=== PATIENT | male | born 1965 | race Caucasian/White ===

== ENCOUNTER 2016-03-20 14:01 | Inpatient (IN) | payer OTHER ==
[2016-03-20 18:50] VITALS: BMI 34.0
--- NOTE | 2016-03-20 21:02 | HP ---
CIWA Score - CIWA Score Nausea/Vomitin-Mild Nausea/No Vomiting Muscle Tremors: 4-Moderate,w/Arms Extend Anxiety: 4-Mod. Anxious/Guarded Agitation: 4-Moderately Restless Paroxysmal Sweats: 1-Minimal Palms Moist Orientation: 1-Uncertain about Date Tacttile Disturbances: 0-None Auditory Disturbances: 0-None Visual Disturbances: 0-None Headache: 0-None Present CIWA-Ar Total Score: 15 Admission ROS BHS - HPI Chief Complaint: withdrawal sx Allergies/Adverse Reactions: Allergies Allergy/AdvReac Type Severity Reaction Status Date / Time shellfish derived Allergy Severe Swelling Verified 03/20/16 20:04 History of Present Illness: 50 years old male with long history of alcohol dependence, has cirrosis of the liver elevation of ammonia, sever gerd bipolar is admitted to detox Exam Limitations: No Limitations - Ebola screening Have you traveled outside of the country in the last 21 days: No Have you had contact with anyone from an Ebola affected area: No Have you been sick,other than usual withdrawal symptoms: No Do you have a fever: No - Review of Systems Constitutional: Chills, Changes in sleep, Weight Stable EENT: reports: No Symptoms Reported Respiratory: reports: No Symptoms reported Cardiac: reports: Palpitations GI: reports: Constipated, Nausea, Vomiting, Indigestion, Abdominal cramping : reports: No Symptoms Reported Musculoskeletal: reports: Back Pain Integumentary: reports: Erythema, Lesions Neuro: reports: Tremors Endocrine: reports: No Symptoms Reported Hematology: reports: No Symptoms Reported Psychiatric: reports: Judgement Intact, Anxious, Depressed Other Systems: Reviewed and Negative Patient History - Patient Medical History Hx Anemia: No Hx Asthma: No Hx Chronic Obstructive Pulmonary Disease (COPD): No Hx Cancer: No Hx Cardiac Disorders: No Hx Congestive Heart Failure: No Hx Hypertension: No Hx Hypercholesterolemia: No Hx Pacemaker: No HX Cerebrovascular Accident: No Hx Seizures: No Hx Dementia: No Hx Diabetes: No Hx Gastrointestinal Disorders: Yes Hx Liver Disease: Yes Hx Genitourinary Disorders: No Hx Sexually Transmitted Disorders: No Hx Renal Disease (ESRD): No Hx Thyroid Disease: No Hx Human Immunodeficiency Virus (HIV): No Hx Hepatitis C: No Hx Depression: No Hx Suicide Attempt: Yes (2013 over dose) Hx Bipolar Disorder: Yes Hx Schizophrenia: No - Patient Surgical History Past Surgical History: No Hx Neurologic Surgery: No Hx Cataract Extraction: No Hx Cardiac Surgery: No Hx Lung Surgery: No Hx Breast Surgery: No Hx Breast Biopsy: No Hx Abdominal Surgery: No Hx Appendectomy: No Hx Cholecystectomy: No Hx Genitourinary Surgery: No Hx Orthopedic Surgery: No Anesthesia Reaction: No - PPD History Previous Implant?: Yes Documented Results: Negative w/o proof Implanted On Prior R Admission?: No PPD to be Administered?: Yes - Smoking Cessation Smoking history: Never smoked Have you smoked in the past 12 months: No Aproximately how many cigarettes per day: 0 Cigars Per Day: 0 Hx Chewing Tobacco Use: No Initiated information on smoking cessation: No - Substance & Tx. History Hx Alcohol Use: Yes Hx Substance Use: No Substance Use Type: Alcohol Hx Substance Use Treatment: Yes - Substances Abused Alcohol Route: Oral Frequency: Daily Amount used: LIQUOR- 2 PINTS Age of first use: 15 Date of Last Use: 03/20/16 Family Disease History - Family Disease History Family Disease History: Diabetes: Mother, Other: Father (no contact) Admission Physical Exam S - Vital Signs Vital Signs: Vital Signs - 24 hr 03/20/16 18:45 Temperature 97.0 F L Pulse Rate 112 H Respiratory 20 Rate Blood Pressure 158/80 - Physical General Appearance: Yes: Nourished, Appropriately Dressed, Moderate Distress, Alcohol on Breath, Tremorous, Irritable, Sweating, Anxious HEENTM: Yes: Hearing grossly Normal, Normal ENT Inspection, Normocephalic, Normal Voice Respiratory: Yes: Chest Non-Tender, Lungs Clear, Normal Breath Sounds, No Respiratory Distress, No Accessory Muscle Use Neck: Yes: Supple, Trachea in good position Breast: Yes: Breasts Symetrical Cardiology: Yes: Regular Rhythm, Regular Rate, S1, S2 Abdominal: Yes: Non Tender, Soft Genitourinary: Yes: Within Normal Limits Back: Yes: Normal Inspection Musculoskeletal: Yes: full range of Motion, Gait Steady, Joint swelling (both ankles) Extremities: Yes: Normal Range of Motion, Non-Tender, Tremors, Swelling (both ankles) Neurological: Yes: Alert, Motor Strength 5/5, Normal Response, Depressed Affect Integumentary: Yes: Warm, Moist Lymphatic: Yes: Within Normal Limits - Diagnostic (1) Alcohol dependence with uncomplicated withdrawal Current Visit: Yes Status: Acute (2) Cirrhosis of liver Current Visit: Yes Status: Chronic Qualifiers: Hepatic cirrhosis type: alcoholic cirrhosis (3) Ammonia dermatitis Current Visit: Yes Status: Acute Comment: lactulose (4) GERD (gastroesophageal reflux disease) Current Visit: Yes Status: Acute Qualifiers: Esophagitis presence: with esophagitis Qualified Code(s): K21.0 - Gastro-esophageal reflux disease with esophagitis Comment: zantac (5) Bipolar II disorder Current Visit: Yes Status: Acute (6) Lumbar paraspinal muscle spasm Current Visit: Yes Status: Acute Comment: flexeril Cleared for Admission S - Detox or Rehab [facility] Level of Care: Medically Managed Detox Regimen/Protocol: Librium Urine Drug Screen - Results Urine Drug Screen Results: TCA-Tricyclic Antidepress
[2016-03-20] MEDS ORDERED: MAG HYDROX/AL HYDROX/SIMETH 30 ML UNIT-DOSE CUP PO PRN (21:13)
[2016-03-20] MEDS ORDERED: LOPERAMIDE HCL 2 MG CAPSULE PO PRN (21:13)
[2016-03-20] MEDS ORDERED: chlordiazePOXIDE HCL 25 MG CAPSULE PO ONE (21:13)
[2016-03-20] MEDS ORDERED: MENTHOL/PHENOL 1 EACH UD MM PRN (21:13)
[2016-03-20] MEDS ORDERED: guaiFENesin/D-METHORPHAN HB 10 ML UNIT-DOSE CUPS PO PRN (21:13)
[2016-03-20] MEDS ORDERED: chlordiazePOXIDE HCL 25 MG CAPSULE PO PRN (21:13)
[2016-03-20] MEDS ORDERED: MAGNESIUM CITRATE 300 ML BOTTLE PO PRN (21:13)
[2016-03-20] MEDS ORDERED: P-EPHED 60MG/TRIPROLIDI 2.5MG TABLET PO PRN (21:13)
[2016-03-20] MEDS ORDERED: IBUPROFEN 400 MG TABLET (FP) PO PRN (21:13)
[2016-03-20] MEDS ORDERED: hydrOXYzine PAMOATE 50 MG CAPSULE (FP) PO PRN (21:13)
[2016-03-20] MEDS ORDERED: MAGNESIUM HYDROX 2400MG/30ML ORAL SUSPENSION 30 ML CUP PO PRN (21:13)
[2016-03-20] MEDS ORDERED: ACETAMINOPHEN 325 MG TABLET (FP) PO PRN (21:13)
[2016-03-20] MEDS ORDERED: cloNIDine HCL 0.1 MG TABLET PO PRN (21:17)
[2016-03-20] MEDS ORDERED: COLLOIDAL OATMEAL 1 BAR EACH TP PRN (21:19)
[2016-03-20] MEDS: RANITIDINE HCL 150 MG TABLET (FP) PO SCH (23:55)
[2016-03-20] MEDS: CYCLOBENZAPRINE HCL 10 MG TABLET (FP) PO SCH (23:55)
[2016-03-21] MEDS: THIAMINE HCL 100 MG TABLET (FP) PO SCH ×2 (00:02→22:17)
[2016-03-21] MEDS: MINERAL OIL/PETROLAT/WATER TOPICAL CREAM 113 GM JAR TP SCH ×2 (00:04→22:55)
[2016-03-21] MEDS: chlordiazePOXIDE HCL 25 MG CAPSULE PO SCH ×5 (00:04→22:16)
[2016-03-21] MEDS: LACTULOSE 20 GM/30 ML UDC (FOR ORAL USE ONLY) PO SCH ×4 (00:06→22:16)
[2016-03-21] MEDS: CYCLOBENZAPRINE HCL 10 MG TABLET (FP) PO SCH (05:12)
[2016-03-21 09:46] LABS: MCH 34.1 pg (25.7-33.7); MCHC 35.3 g/dl (32.0-35.9); MEAN CELL VOLUME 96.8 fl (80-96); MEAN PLT VOLUME 8.3 fl (7.5-11.1); PLATELET COUNT 106 K/MM3 (134-434); RDW 14.3 % (11.9-15.9); WHITE BLOOD COUNT 5.5 K/mm3 (4.0-10.0)
[2016-03-21] MEDS: PRENATAL VITAMINS W/ FOLIC ACID TABLET (FP) PO SCH (10:13)
[2016-03-21] MEDS: RANITIDINE HCL 150 MG TABLET (FP) PO SCH ×2 (10:13→22:16)
[2016-03-21 10:37] LABS: ALBUMIN 4.2 g/dl (3.4-5.0); ALK PHOS 198 U/L (45-117); ANION GAP 13 (8-16); BILIRUBIN,TOTAL 2.7 mg/dL (0.2-1.0); CALCIUM 10.1 mg/dL (8.5-10.1); CO2 23 mmol/L (21-32); CREATININE 0.8 mg/dL (0.7-1.3); GLUCOSE,RANDOM 181 mg/dL (74-106); SGOT/AST 72 U/L (15-37); SGPT/ALT 40 U/L (12-78); TOT PROT 7.8 g/dl (6.4-8.2)
--- NOTE | 2016-03-21 10:58 | PN ---
BHS CIWA - CIWA Score Nausea/Vomitin Muscle Tremors: 4-Moderate,w/Arms Extend Anxiety: 4-Mod. Anxious/Guarded Agitation: 4-Moderately Restless Paroxysmal Sweats: 3 Orientation: 0-Oriented Tacttile Disturbances: 1-Very Mild Itch/Numbness Auditory Disturbances: 0-None Visual Disturbances: 0-None Headache: 1-Very Mild CIWA-Ar Total Score: 20 BHS Progress Note (SOAP) Subjective: nausea, sweats, interrupted sleep, anxiety, tremors Objective: 03/21/16 10:55 Vital Signs - 24 hr 03/20/16 03/21/16 03/21/16 18:45 00:05 00:30 Temperature 97.0 F L 98.6 F Pulse Rate 112 H 107 H Respiratory 20 20 18 Rate Blood Pressure 158/80 148/82 03/21/16 03/21/16 03/21/16 03:30 06:14 09:30 Temperature 97.9 F 97.7 F Pulse Rate 93 H 96 H Respiratory 18 18 16 Rate Blood Pressure 144/83 150/86 Laboratory Tests 03/21/16 03/21/16 03/21/16 06:00 06:00 07:00 WBC 5.5 RBC 4.68 Hgb 16.0 Hct 45.3 MCV 96.8 H MCHC 35.3 RDW 14.3 Plt Count 106 L MPV 8.3 Sodium 143 Potassium 3.7 Chloride 107 Carbon Dioxide 23 Anion Gap 13 BUN 10 Creatinine 0.8 Creat Clearance w eGFR > 60 Random Glucose 181 H Calcium 10.1 Total Bilirubin 2.7 H AST 72 H ALT 40 Alkaline Phosphatase 198 H Ammonia 146.73 H Total Protein 7.8 Albumin 4.2 elevated ammonia level Assessment: 03/21/16 10:56 withdrawal sx, encephalopathy Plan: cont detox, fluids, lactulose from hepatic encephalopathy
[2016-03-21 11:06] LABS: HIV 1 & 2 AB NEGATIVE; HIV 1 AGp24 NEGATIVE
[2016-03-21] MEDS ORDERED: CYCLOBENZAPRINE HCL 10 MG TABLET (FP) PO ONE (11:11)
[2016-03-21] MEDS: CYCLOBENZAPRINE HCL 10 MG TABLET (FP) PO PRN (13:04)
--- NOTE | 2016-03-21 18:00 | CONSULT ---
[facility] Psychiatric Consult - Data Date of interview: 03/21/16 Admission source: [facility] Identifying data: First admission to [facility] for this 50 y/o male seeking detox treatment on for alcohol dependence.Patient is single without children,domiciled,unemployed and supported on [facility] benefits. Substance Abuse History: - Smoking Cessation. Smoking history: Never smoked. Have you smoked in the past 12 months: No. Aproximately how many cigarettes per day: 0. Cigars Per Day: 0. Hx Chewing Tobacco Use: No. Initiated information on smoking cessation: No. - Substance & Tx. History. Hx Alcohol Use: Yes. Hx Substance Use: No. Substance Use Type: Alcohol. Hx Substance Use Treatment: Yes. - Substances Abused. Alcohol. Route: Oral. Frequency : Daily. Amount used: LIQUOR- 2 PINTS. Age of first use: 15. Date of Last Use : 03/20/16. Confirmed by patient. Medical History: Obesity and cirrhosis of the liver. Psychiatric History: Diagnosed with Bipolar Disorder,MDD and PTSD.History of two psychiatric hospitalizations ([facility] 3 years ago and [facility] 2 years ago).Mr Montilla gets his outpatient psychiatric services at [facility].Medications : seroquel 300 mg/hs + trazodone 150 mg/hs (verified via pharmacy claims of @ [facility]).Patient reports a history of one suicide attempt via overdose with medications (reason of his first hospitalization). Physical/Sexual Abuse/Trauma History: Patient denies. Additional Comment: Urine Drug Screen Results: TCA-Tricyclic Antidepressant.Noted. Mental Status Exam - Mental Status Exam Alert and Oriented to: Time, Place, Person Cognitive Function: Good Patient Appearance: Well Groomed Mood: Anxious, Hopeful Affect: Mood Congruent Patient Behavior: Fatigued, Talkative, Appropriate, Cooperative Speech Pattern: Clear, Appropriate Voice Loudness: Normal Thought Process: Goal Oriented Thought Disorder: Not Present Hallucinations: Denies Suicidal Ideation: Denies Homicidal Ideation: Denies Insight/Judgement: Fair Sleep: Poorly, Difficulty falling asleep Muscle strength/Tone: Normal Gait/Station: Normal Psychiatric Findings - Problem List ([place] 1, 2,3) (1) Alcohol dependence with uncomplicated withdrawal Current Visit: Yes Status: Acute (2) Bipolar II disorder Current Visit: Yes Status: Chronic (3) GERD (gastroesophageal reflux disease) Current Visit: Yes Status: Chronic Qualifiers: Esophagitis presence: with esophagitis Qualified Code(s): K21.0 - Gastro-esophageal reflux disease with esophagitis Comment: zantac (4) Cirrhosis of liver Current Visit: Yes Status: Chronic Qualifiers: Hepatic cirrhosis type: alcoholic cirrhosis - Initial Treatment Plan Initial Treatment Plan: Psychoeducation.Detoxification.Medications :seroquel 300 mg po hs + trazodone 100 mg po hs.Side effects/benefits discussed with the patient.Patient agrees with this plan.Observation.No scripts at discharge ( refills already available at home).
[2016-03-21] MEDS: QUEtiapine FUMARATE 300 MG TABLET PO SCH (22:16)
[2016-03-21] MEDS: traZODone HCL 100 MG TABLET (FP) PO SCH (22:16)
--- NOTE | 2016-03-21 23:34 | EKG ---
Test Reason : Blood Pressure : / mmHG Vent. Rate : 099 BPM Atrial Rate : 099 BPM P-R Int : 200 ms QRS Dur : 114 ms QT Int : 362 ms P-R-T Axes : 055 -29 052 degrees QTc Int : 464 ms NORMAL SINUS RHYTHM INCOMPLETE RIGHT BUNDLE BRANCH BLOCK BORDERLINE ECG NO PREVIOUS ECGS AVAILABLE Confirmed by ROME JUAN, MAGDALENO ([id number]) on 03/21/2016 11:34:18 PM Referred By: Confirmed By:MAGDALENO PETER MD
[2016-03-22] MEDS: diphenhydrAMINE HCL 50 MG CAPSULE PO PRN ×2 (00:27→23:36)
[2016-03-22] MEDS: chlordiazePOXIDE HCL 25 MG CAPSULE PO SCH ×3 (05:56→18:02)
[2016-03-22] MEDS: LACTULOSE 20 GM/30 ML UDC (FOR ORAL USE ONLY) PO SCH ×3 (06:50→22:33)
[2016-03-22] MEDS: PRENATAL VITAMINS W/ FOLIC ACID TABLET (FP) PO SCH (10:17)
[2016-03-22] MEDS: RANITIDINE HCL 150 MG TABLET (FP) PO SCH ×2 (10:17→22:30)
--- NOTE | 2016-03-22 10:31 | PN ---
S CIWA - CIWA Score Nausea/Vomitin-No Nausea/No Vomiting Muscle Tremors: 4-Moderate,w/Arms Extend Anxiety: 4-Mod. Anxious/Guarded Agitation: 4-Moderately Restless Paroxysmal Sweats: 3 Orientation: 0-Oriented Tacttile Disturbances: 0-None Auditory Disturbances: 0-None Visual Disturbances: 0-None Headache: 0-None Present CIWA-Ar Total Score: 15 BHS Progress Note (SOAP) Subjective: my muscle cramps went away. sweats irritable interrupted sleep Objective: 03/22/16 10:31 Vital Signs Temperature 97.3 F L 03/22/16 09:49 Pulse Rate 89 03/22/16 09:49 Respiratory Rate 18 03/22/16 09:49 Blood Pressure 128/75 03/22/16 09:49 O2 Sat by Pulse Oximetry (%) Laboratory Tests 03/21/16 03/21/16 03/21/16 06:00 06:00 06:00 WBC 5.5 RBC 4.68 Hgb 16.0 Hct 45.3 MCV 96.8 H MCHC 35.3 RDW 14.3 Plt Count 106 L MPV 8.3 Sodium 143 Potassium 3.7 Chloride 107 Carbon Dioxide 23 Anion Gap 13 BUN 10 Creatinine 0.8 Creat Clearance w eGFR > 60 Random Glucose 181 H Calcium 10.1 Total Bilirubin 2.7 H AST 72 H ALT 40 Alkaline Phosphatase 198 H Ammonia Total Protein 7.8 Albumin 4.2 RPR Titer Hepatitis C Antibody HIV 1&2 Antibody Screen Negative HIV P24 Antigen Negative 03/21/16 03/21/16 03/21/16 06:00 06:00 07:00 WBC RBC Hgb Hct MCV MCHC RDW Plt Count MPV Sodium Potassium Chloride Carbon Dioxide Anion Gap BUN Creatinine Creat Clearance w eGFR Random Glucose Calcium Total Bilirubin AST ALT Alkaline Phosphatase Ammonia 146.73 H Total Protein Albumin RPR Titer Nonreactive Hepatitis C Antibody <0.1 HIV 1&2 Antibody Screen HIV P24 Antigen Assessment: 03/22/16 10:33 withdrawal sx Plan: continue detox increase fluids
[2016-03-22 13:04] LABS: URINE APPEARANCE CLEAR; URINE BILIRUBIN NEGATIVE (NEGATIVE); URINE BLOOD NEGATIVE (NEGATIVE); URINE COLOR YELLOW; URINE GLUCOSE (UA) 3+ (NEGATIVE); URINE KETONE NEGATIVE (NEGATIVE); URINE LEUK ESTERASE NEGATIVE (NEGATIVE); URINE NITRITE NEGATIVE (NEGATIVE); URINE PROTEIN NEGATIVE (NEGATIVE); URINE UROBILINOGEN NEGATIVE E.U./dl (0.2-1.0)
[2016-03-22] MEDS: THIAMINE HCL 100 MG TABLET (FP) PO SCH (22:29)
[2016-03-22] MEDS: CYCLOBENZAPRINE HCL 10 MG TABLET (FP) PO PRN (22:30)
[2016-03-22] MEDS: QUEtiapine FUMARATE 300 MG TABLET PO SCH (22:30)
[2016-03-22] MEDS: chlordiazePOXIDE 5 MG CAPSULE PO SCH (22:30)
[2016-03-22] MEDS: traZODone HCL 100 MG TABLET (FP) PO SCH (22:32)
[2016-03-22] MEDS: MINERAL OIL/PETROLAT/WATER TOPICAL CREAM 113 GM JAR TP SCH (22:34)
[2016-03-23] MEDS: chlordiazePOXIDE 5 MG CAPSULE PO SCH ×3 (05:28→17:23)
[2016-03-23] MEDS: LACTULOSE 20 GM/30 ML UDC (FOR ORAL USE ONLY) PO SCH ×3 (05:30→22:22)
--- NOTE | 2016-03-23 10:13 | PN ---
BHS Progress Note (SOAP) Subjective: i am feeling much better very little sweats Objective: 03/23/16 10:12 Vital Signs Temperature 98.8 F 03/23/16 06:17 Pulse Rate 105 H 03/23/16 09:29 Respiratory Rate 18 03/23/16 09:29 Blood Pressure 134/77 03/23/16 09:29 O2 Sat by Pulse Oximetry (%) awake/alert ambulating no acute distress Assessment: 03/23/16 10:13 withdrawal sx Plan: continue detox increase fluids d/c in am
[2016-03-23] MEDS: RANITIDINE HCL 150 MG TABLET (FP) PO SCH ×2 (10:16→22:21)
[2016-03-23] MEDS: PRENATAL VITAMINS W/ FOLIC ACID TABLET (FP) PO SCH (10:16)
[2016-03-23] MEDS: MINERAL OIL/PETROLAT/WATER TOPICAL CREAM 113 GM JAR TP SCH (22:21)
[2016-03-23] MEDS: chlordiazePOXIDE HCL 10 MG CAPSULE PO SCH (22:21)
[2016-03-23] MEDS: THIAMINE HCL 100 MG TABLET (FP) PO SCH (22:21)
[2016-03-23] MEDS: QUEtiapine FUMARATE 300 MG TABLET PO SCH (22:21)
[2016-03-23] MEDS: traZODone HCL 100 MG TABLET (FP) PO SCH (22:21)
[2016-03-23] MEDS: diphenhydrAMINE HCL 50 MG CAPSULE PO PRN (22:21)
[2016-03-24] MEDS: diphenhydrAMINE HCL 50 MG CAPSULE PO PRN (02:10)
[2016-03-24] MEDS: chlordiazePOXIDE HCL 10 MG CAPSULE PO SCH (06:07)
[2016-03-24 06:21] VITALS: BP 126/73; PULSE 82; TEMP 97.7
[2016-03-24] MEDS: LACTULOSE 20 GM/30 ML UDC (FOR ORAL USE ONLY) PO SCH (07:32)
--- NOTE | 2016-03-24 08:33 | PN ---
S Progress Note (SOAP) Subjective: ALERT,NO COMPLAINT Objective: 03/24/16 08:32 Vital Signs Temperature 97.7 F 03/24/16 06:00 Pulse Rate 82 03/24/16 06:00 Respiratory Rate 20 03/24/16 06:00 Blood Pressure 126/73 03/24/16 06:00 O2 Sat by Pulse Oximetry (%) Assessment: 03/24/16 08:32 DETOX COMPLETED NO WITHDRAWAL SYMPTOM Plan: DISCHARGE TODAY,FOLLOW UP WITH AFTER CARE PROGRAM ARRANGEMENT
--- NOTE | 2016-03-24 08:39 | DS ---
[facility] Detox Discharge Summary Admission Date: 03/20/16 Discharge Date: 03/24/16 - History Present History: Alcohol Dependence Additional Comments: FOLLOW UP WITH AFTER [facility] ARR[facility] AND PMD FOR MEDICAL PROBLEM AND OWN PSYCHIATRIST Pertinent Past History: CIRRHOSIS OF LIVER GERD LOW BACK PAIN BIPOLAR 2 DISORDER - Physical Exam Results Vital Signs: Vital Signs Temperature 97.7 F 03/24/16 06:00 Pulse Rate 82 03/24/16 06:00 Respiratory Rate 20 03/24/16 06:00 Blood Pressure 126/73 03/24/16 06:00 O2 Sat by Pulse Oximetry (%) Pertinent Admission Physical Exam Findings: WITHDRAWAL SYMPTOM - Treatment Hospital Course: Detox Protocol Followed, Detoxed Safely, Responded well, Discharged Condition Good, Rehab Referral Accepted Patient has Accepted a Rehab Referral to: [facility] - Medication Discharge Medications: Ambulatory Orders Lactulose (Oral Use) [Cephulac -] 20 gm PO TID 03/20/16 Quetiapine Fumarate [Seroquel -] 200 mg PO HS 03/20/16 Trazodone HCl [Desyrel -] 100 mg PO HS 03/20/16 - AMA Did Patient Leave Against Medical Advice: No
== END 2016-03-24 09:56 | disposition home or self-care (01) | DRG 775 ==
LOC: YASAS 14:01 → Y6N 20:20
PROVIDERS: ADMIT Internal Medicine; ATTEND Internal Medicine
PROC: HZ2ZZZZ Detoxification Services for Substance Abuse Treatment (ICD-10-PCS; principal; 2016-03-24)
DX: F10.230 Alcohol dependence with withdrawal, uncomplicated (principal); F31.81 Bipolar II disorder; K21.0 Gastro-esophageal reflux disease with esophagitis; K70.30 Alcoholic cirrhosis of liver without ascites; L30.8 Other specified dermatitis; M62.830 Muscle spasm of back
CPT/HCPCS: 36415; 80053; 81003; 82140; 85027; 86593; 86803; 87389; 93005; 93010

== ENCOUNTER 2016-06-08 11:04 | Emergency (ER) | payer OTHER ==
[2016-06-08 11:19] VITALS: TEMP 98.2; BMI 34.0
--- NOTE | 2016-06-08 11:43 | PDOC ---
History of Present Illness - History of Present Illness Initial Comments: 06/08/16 12:17 The patient is a 50 year old male with a past medical hx of cirrhosis, hepatic encephalopathy, chronic alcohol abuse who presents to the ED from [place] for alcohol detox. The patient presents to the ED intoxicated. He notes he went to [facility] who sent him to the ED. The patient states he has been sober for the past 35 days. He states he fell off the wagon yesterday and has had approximately 35 drinks in the past 24 hours. The patient reports his last drink was about two hours ago. He denies any drug use. He is requesting a detox and has no complaints at this time. The patient denies any abdominal pain, nausea, vomiting PCP: Dr. Steve Wang <Kristina Cespedes - Last Filed: 06/08/16 15:09> <Jalen Becerra - Last Filed: 06/08/16 15:21> - General Chief Complaint: Substance Abuse Stated Complaint: REQUESTING DETOX Time Seen by Provider: 06/08/16 11:30 Past History <Kristina Cespedes - Last Filed: 06/08/16 15:09> - Past Medical History Anemia: No Asthma: No Cancer: No Cardiac Disorders: No CVA: No COPD: No CHF: No Dementia: No Diabetes: No GI Disorders: Yes (CIRRHOSIS) Disorders: No HTN: No Hypercholesterolemia: No Kidney Stones: No Liver Disease: Yes Suicide Attempt (Hx): Yes (2013 over dose) Seizures: No Thyroid Disease: No - Surgical History Abdominal Surgery: No Appendectomy: No Cardiac Surgery: No Cholecystectomy: No Lung Surgery: No Neurologic Surgery: No Orthopedic Surgery: No - Reproductive History Testicular Surgery: No - Psycho/Social/Smoking Cessation Hx Anxiety: Yes Suicidal Ideation: No Smoking History: Never smoked Have you smoked in the past 12 months: No Number of Cigarettes Smoked Daily: 0 Cigars Per Day: 0 Hx Alcohol Use: Yes (1 BOTTLE OF VODKA A DAY) Drug/Substance Use Hx: No Substance Use Type: Alcohol Hx Substance Use Treatment: Yes <Jalen Becerra - Last Filed: 06/08/16 15:21> - Past Medical History Allergies/Adverse Reactions: Allergies Allergy/AdvReac Type Severity Reaction Status Date / Time shellfish derived Allergy Severe Swelling Verified 06/08/16 11:14 Home Medications: Ambulatory Orders Lactulose (Oral Use) [Cephulac -] 20 gm PO TID #1 udc 03/24/16 Review of Systems - Review of Systems Able to Perform ROS?: Yes Comments:: 06/08/16 12:17 GENERAL/CONSTITUTIONAL: No fever or chills. No weakness. HEAD, EYES, EARS, NOSE AND THROAT: No change in vision. No ear pain or discharge. No sore throat. CARDIOVASCULAR: No chest pain or shortness of breath. RESPIRATORY: No cough, wheezing, or hemoptysis. GASTROINTESTINAL: No nausea, vomiting, diarrhea or constipation. GENITOURINARY: No dysuria, frequency, or change in urination. MUSCULOSKELETAL: No joint or muscle swelling or pain. No neck or back pain. SKIN: No rash NEUROLOGIC: No headache, vertigo, loss of consciousness, or change in strength/ sensation. ENDOCRINE: No increased thirst. No abnormal weight change. HEMATOLOGIC/LYMPHATIC: No anemia, easy bleeding, or history of blood clots. ALLERGIC/IMMUNOLOGIC: No hives or skin allergy. <Kristina Cespedes - Last Filed: 06/08/16 15:09> *Physical Exam - Vital Signs Last Vital Signs Temp Pulse Resp BP Pulse Ox 98.2 F 100 H 19 151/83 95 06/08/16 11:14 06/08/16 11:14 06/08/16 11:14 06/08/16 11:14 06/08/16 11:14 - Physical Exam Comments: 06/08/16 12:17 GENERAL: +Appears intoxicated. Awake, alert, and fully oriented, in no acute distress HEAD: No signs of trauma EYES: PERRLA, EOMI, sclera anicteric, conjunctiva clear ENT: Auricles normal inspection, hearing grossly normal, nares patent, oropharynx clear without exudates. Moist mucosa NECK: Normal ROM, supple, no lymphadenopathy, JVD, or masses LUNGS: Breath sounds equal, clear to auscultation bilaterally. No wheezes, and no crackles HEART: Regular rate and rhythm, normal S1 and S2, no murmurs, rubs or gallops ABDOMEN: +Distended. Soft, nontender, normoactive bowel sounds. No guarding, no rebound. No masses EXTREMITIES: Normal range of motion, no edema. No clubbing or cyanosis. No cords, erythema, or tenderness NEUROLOGICAL: Cranial nerves II through XII grossly intact. Normal speech, normal gait SKIN: Warm, Dry, normal turgor, no rashes or lesions noted. <Kristina Cespedes - Last Filed: 06/08/16 15:09> - Vital Signs Last Vital Signs Temp Pulse Resp BP Pulse Ox 98.2 F 100 H 19 151/83 95 06/08/16 11:14 06/08/16 11:14 06/08/16 11:14 06/08/16 11:14 06/08/16 11:14 <Jalen Becerra - Last Filed: 06/08/16 15:21> Heart Score/ECG Review - ECG Impressions Comment:: 06/08/16 12:[address] Becerra Sinus rhythm with 1st degree AV block Rate 77 bpm Left axis deviation RBBB <Kristina Cespedes - Last Filed: 06/08/16 15:09> ED Treatment Course - LABORATORY CBC & Chemistry Diagram: 06/08/16 12:06 06/08/16 12:06 - RADIOLOGY Radiograph Interpretation: 06/08/16 14:06 RAD/CHEST X-RAY PORTABLE* Detox, medical clearance. Single semierect portable chest x-ray. Unremarkable contour of the cardiomediastinal silhouette. No evidence of pneumonia, atelectasis, pleural effusion or pneumothorax. No bulky hilar adenopathy is seen. Intact visualized osseous structures. Impression. No evidence of active pulmonary disease. Reported By: Lazaro Rosado MD 06/08/16 1400 <Kristina Cespedes - Last Filed: 06/08/16 15:09> - LABORATORY CBC & Chemistry Diagram: 06/08/16 12:06 06/08/16 12:06 <Jalen Becerra - Last Filed: 06/08/16 15:21> Medical Decision Making - Medical Decision Making 06/08/16 15:09 The patient is a 50 year old male with a past medical hx of cirrhosis, hepatic encephalopathy, chronic alcohol abuse who presents to the ED from [place] for alcohol detox. The patient presents to the ED intoxicated. He was sent here from [place]. He has no complaints at this time. The plan is to order EKG, labs, CXR. Called [facility] who reports there are no available beds for the patient. <Kristina Cespedes - Last Filed: 06/08/16 15:09> - Medical Decision Making 06/08/16 15:17 There are no detox beds at [facility]. Patient no longer wants detox, as his mother was just rushed to the hospital and it turns out she is having a heart attact. His BAL should be around 160 and he is not tremulous or showing any signs of alcohol withdrawall. He is clinically sober and free to go. <Jalen Becerra - Last Filed: 06/08/16 15:21> *DC/Admit/Observation/Transfer - Attestations Scribe Attestion: 06/08/16 12:17 Documentation prepared by Kristina Cespedes, acting as general medical practitioner for Jalen Becerra MD/DO. <Kristina Cespedes - Last Filed: 06/08/16 15:09> - Discharge Dispostion Admit: No - Attestations Physician Attestion: 06/08/16 11:42 I, Dr. Jalen Becerra, attest that this document has been prepared under my direction and personally reviewed by me in its entirety. I further attest, that it accurately reflects all work, treatment, procedures and medical decision -making performed by me. <Jalen Becerra - Last Filed: 06/08/16 15:21> Diagnosis at time of Disposition: Alcoholic intoxication Qualifiers: Complication of substance-induced condition: uncomplicated Qualified Code(s): F10.120 - Alcohol abuse with intoxication, uncomplicated - Discharge Dispostion Disposition: HOME Condition at time of disposition: Good - Referrals Referrals: Steve Wang [Primary Care Provider] - - Patient Instructions Printed Discharge Instructions: DI for Alcohol Abuse Additional Instructions: Lazaro- Sorry to hear about your mom. Return to us if any problems at all. Best- Dr. Jalen Becerra
[2016-06-08] MEDS ORDERED: FOLIC ACID INJECTION - 1 MG, THIAMINE HCL 100 MG, MULTIVIT INJECTION ADULT 10 ML in SOD... IVPB ONE (11:45)
[2016-06-08 12:48] LABS: EOSINOPHIL 2.4 % (0-4.5); MCHC 35.6 g/dl (32.0-35.9); MEAN CELL VOLUME 95.5 fl (80-96); MEAN PLT VOLUME 7.4 fl (7.5-11.1); NEUTROPHILS 48.9 % (42.8-82.8); PLATELET COUNT 88 K/MM3 (134-434); WHITE BLOOD COUNT 3.7 K/mm3 (4.0-10.0)
[2016-06-08 13:08] LABS: INR 1.22 (0.82-1.09); PROTHROMBIN TIME (PATIENT) 13.5 SEC (9.98-11.88)
[2016-06-08 13:12] LABS: ALBUMIN 3.9 g/dl (3.4-5.0); ANION GAP 12 (8-16); BILIRUBIN,TOTAL 2.4 mg/dL (0.2-1.0); CALCIUM 8.8 mg/dL (8.5-10.1); CO2 27 mmol/L (21-32); COCKROFT - GAULT 226.79; CREATININE 0.7 mg/dL (0.7-1.3); GLUCOSE,RANDOM 107 mg/dL (74-106); SGOT/AST 78 U/L (15-37); SGPT/ALT 49 U/L (12-78); TOT PROT 7.6 g/dl (6.4-8.2)
[2016-06-08 13:15] LABS: ALK PHOS 151 U/L (45-117); TROPONIN I < 0.02 ng/ml (0.00-0.05)
[2016-06-08 15:24] VITALS: BP 137/69; PULSE 88
--- NOTE | 2016-06-08 16:21 | EKG ---
Test Reason : Blood Pressure : / mmHG Vent. Rate : 077 BPM Atrial Rate : 077 BPM P-R Int : 210 ms QRS Dur : 126 ms QT Int : 432 ms P-R-T Axes : 046 -40 074 degrees QTc Int : 488 ms SINUS RHYTHM WITH 1ST DEGREE A-V BLOCK LEFT AXIS DEVIATION RIGHT BUNDLE BRANCH BLOCK ABNORMAL ECG WHEN COMPARED WITH ECG OF 21-MAR-2016 00:02, NO SIGNIFICANT CHANGE WAS FOUND Confirmed by DIANA JUAN, ORA ([id number]) on 06/08/2016 4:21:05 PM Referred By: Confirmed By:ORA ORTIZ MD
== END 2016-06-08 15:24 | disposition home or self-care (01) ==
LOC: JER 11:04
PROC: 3E033GC Introduction of Other Therapeutic Substance into Peripheral Vein, Percutaneous Approach (ICD-10-PCS; principal; 2016-06-08)
DX: F10.120 Alcohol abuse with intoxication, uncomplicated (principal); K74.60 Unspecified cirrhosis of liver; K76.9 Liver disease, unspecified; F41.9 Anxiety disorder, unspecified
CPT/HCPCS: 36415; 71010-TC; 80053; 80307; 82140; 82550; 82553; 84484; 85025; 85610; 93005; 93010; 99282-25

== ENCOUNTER 2016-07-25 11:41 | Inpatient (IN) | payer OTHER ==
[2016-07-25 16:20] VITALS: BMI 34.0
--- NOTE | 2016-07-25 18:09 | HP ---
CIWA Score - CIWA Score Nausea/Vomitin-Mild Nausea/No Vomiting Muscle Tremors: 4-Moderate,w/Arms Extend Anxiety: 4-Mod. Anxious/Guarded Agitation: 4-Moderately Restless Paroxysmal Sweats: 1-Minimal Palms Moist Orientation: 1-Uncertain about Date Tacttile Disturbances: 0-None Auditory Disturbances: 0-None Visual Disturbances: 0-None Headache: 0-None Present CIWA-Ar Total Score: 15 Admission ROS BHS - HPI Chief Complaint: WITHDRAWAL SX Allergies/Adverse Reactions: Allergies Allergy/AdvReac Type Severity Reaction Status Date / Time shellfish derived Allergy Severe Swelling Verified 07/25/16 17:20 History of Present Illness: 50 YEARS OLD MALE WITH LONG HISTORY OF ALCOHOL DEPENDENCE HAS GERD AND AMMONIA ELEVATION AND BIPOLAR II IS ADMITTED TO DETOX Exam Limitations: No Limitations - Ebola screening Have you traveled outside of the country in the last 21 days: No Have you had contact with anyone from an Ebola affected area: No Have you been sick,other than usual withdrawal symptoms: No Do you have a fever: No - Review of Systems Constitutional: Chills, Changes in sleep, Weight Stable EENT: reports: No Symptoms Reported Respiratory: reports: No Symptoms reported Cardiac: reports: No Symptoms Reported GI: reports: Nausea, Poor Fluid Intake, Indigestion, Abdominal cramping : reports: No Symptoms Reported Musculoskeletal: reports: Back Pain Integumentary: reports: No Symptoms Reported Neuro: reports: Tremors Endocrine: reports: No Symptoms Reported Hematology: reports: No Symptoms Reported Psychiatric: reports: Judgement Intact, Anxious, Depressed Other Systems: Reviewed and Negative Patient History - Patient Medical History Hx Anemia: No Hx Asthma: No Hx Chronic Obstructive Pulmonary Disease (COPD): No Hx Cancer: No Hx Cardiac Disorders: No Hx Congestive Heart Failure: No Hx Hypertension: No Hx Hypercholesterolemia: No Hx Pacemaker: No HX Cerebrovascular Accident: No Hx Seizures: No Hx Dementia: No Hx Diabetes: No Hx Gastrointestinal Disorders: Yes (CIRRHOSIS) Hx Liver Disease: Yes Hx Genitourinary Disorders: No Hx Sexually Transmitted Disorders: No Hx Renal Disease (ESRD): No Hx Thyroid Disease: No Hx Human Immunodeficiency Virus (HIV): No Hx Hepatitis C: No Hx Depression: No Hx Suicide Attempt: Yes (2013 over dose) Hx Bipolar Disorder: Yes Hx Schizophrenia: No - Patient Surgical History Past Surgical History: No Hx Neurologic Surgery: No Hx Cataract Extraction: No Hx Cardiac Surgery: No Hx Lung Surgery: No Hx Breast Surgery: No Hx Breast Biopsy: No Hx Abdominal Surgery: No Hx Appendectomy: No Hx Cholecystectomy: No Hx Genitourinary Surgery: No Hx Orthopedic Surgery: No - PPD History Previous Implant?: Yes Documented Results: Negative w/proof Implanted On Prior R Admission?: Yes Date: 03/23/16 PPD to be Administered?: No - Smoking Cessation Smoking history: Never smoked Have you smoked in the past 12 months: No Aproximately how many cigarettes per day: 0 Cigars Per Day: 0 Hx Chewing Tobacco Use: No Initiated information on smoking cessation: No - Substance & Tx. History Hx Alcohol Use: Yes Hx Substance Use: No Substance Use Type: Alcohol Hx Substance Use Treatment: Yes - Substances Abused Alcohol Route: Oral Frequency: Daily Amount used: LIQUOR-1 PINT, BEER- 1 SIX SIX PACK Age of first use: 18 Date of Last Use: 07/25/16 Family Disease History - Family Disease History Family Disease History: Diabetes: Mother, Other: Father (no contact) Admission Physical Exam S - Vital Signs Vital Signs: Vital Signs - 24 hr 07/25/16 16:19 Temperature 97 F L Pulse Rate 113 H Respiratory 20 Rate Blood Pressure 148/77 - Physical General Appearance: Yes: Appropriately Dressed, Mild Distress, Alcohol on Breath , Obese, Tremorous, Irritable, Sweating, Anxious HEENTM: Yes: Hearing grossly Normal, Normal ENT Inspection, Normocephalic, Normal Voice Respiratory: Yes: Chest Non-Tender, Lungs Clear, Normal Breath Sounds, No Respiratory Distress, No Accessory Muscle Use Neck: Yes: Supple, Trachea in good position Breast: Yes: Breasts Symetrical Cardiology: Yes: Regular Rhythm, S1, S2, Tachycardia Abdominal: Yes: Non Tender, Soft Genitourinary: Yes: Within Normal Limits Musculoskeletal: Yes: full range of Motion, Gait Steady, Back pain Extremities: Yes: Normal Inspection, Normal Range of Motion, Non-Tender, Tremors Neurological: Yes: Alert, Motor Strength 5/5, Normal Response, Depressed Affect Integumentary: Yes: Warm Lymphatic: Yes: Within Normal Limits - Diagnostic (1) Alcohol dependence with uncomplicated withdrawal Current Visit: Yes Status: Acute (2) Ammonia dermatitis Current Visit: Yes Status: Chronic Comment: lactulose (3) Bipolar II disorder Current Visit: Yes Status: Suspected (4) Cirrhosis of liver Current Visit: Yes Status: Chronic Qualifiers: Hepatic cirrhosis type: alcoholic cirrhosis Ascites presence: without ascites Qualified Code(s): K70.30 - Alcoholic cirrhosis of liver without ascites (5) GERD (gastroesophageal reflux disease) Current Visit: Yes Status: Chronic Qualifiers: Esophagitis presence: without esophagitis Qualified Code(s): K21.9 - Gastro-esophageal reflux disease without esophagitis Comment: zantac TREATED ENDOSCOPE 2017 Cleared for Admission [facility] - Detox or Rehab [facility] Level of Care: Medically Managed Detox Regimen/Protocol: Librium [facility] Breath Alcohol Content Breath Alcohol Content: 0.031 Urine Drug Screen - Results Drug Screen Negative: Yes
[2016-07-25] MEDS ORDERED: guaiFENesin/D-METHORPHAN HB 10 ML UNIT-DOSE CUPS PO PRN (18:12)
[2016-07-25] MEDS ORDERED: diphenhydrAMINE HCL 50 MG CAPSULE PO PRN (18:12)
[2016-07-25] MEDS ORDERED: MAGNESIUM CITRATE 300 ML BOTTLE PO PRN (18:12)
[2016-07-25] MEDS ORDERED: chlordiazePOXIDE HCL 25 MG CAPSULE PO PRN (18:12)
[2016-07-25] MEDS ORDERED: MAGNESIUM HYDROX 2400MG/30ML ORAL SUSPENSION 30 ML CUP PO PRN (18:12)
[2016-07-25] MEDS ORDERED: P-EPHED 60MG/TRIPROLIDI 2.5MG TABLET PO PRN (18:12)
[2016-07-25] MEDS ORDERED: MENTHOL/PHENOL 1 EACH UD MM PRN (18:12)
[2016-07-25] MEDS ORDERED: LOPERAMIDE HCL 2 MG CAPSULE PO PRN (18:12)
[2016-07-25] MEDS ORDERED: hydrOXYzine PAMOATE 50 MG CAPSULE (FP) PO PRN (18:12)
[2016-07-25] MEDS ORDERED: MAG HYDROX/AL HYDROX/SIMETH 30 ML UNIT-DOSE CUP PO PRN (18:12)
[2016-07-25] MEDS ORDERED: CYCLOBENZAPRINE HCL 10 MG TABLET (FP) PO PRN (18:15)
[2016-07-25] MEDS ORDERED: chlordiazePOXIDE HCL 25 MG CAPSULE PO ONE (19:00)
[2016-07-25] MEDS: RANITIDINE HCL 150 MG TABLET (FP) PO SCH (22:06)
[2016-07-25] MEDS: RIFAXIMIN 550 MG TABLET (UD) PO SCH (22:06)
[2016-07-25] MEDS: LACTULOSE 20 GM/30 ML UDC (FOR ORAL USE ONLY) PO SCH (22:06)
[2016-07-25] MEDS: chlordiazePOXIDE HCL 25 MG CAPSULE PO SCH (22:07)
[2016-07-25] MEDS: THIAMINE HCL 100 MG TABLET (FP) PO SCH (22:07)
[2016-07-26 00:15] LABS: URINE APPEARANCE CLEAR; URINE BILIRUBIN NEGATIVE (NEGATIVE); URINE BLOOD NEGATIVE (NEGATIVE); URINE COLOR LTYELLOW; URINE GLUCOSE (UA) NEGATIVE (NEGATIVE); URINE KETONE NEGATIVE (NEGATIVE); URINE LEUK ESTERASE NEGATIVE (NEGATIVE); URINE NITRITE NEGATIVE (NEGATIVE); URINE PROTEIN NEGATIVE (NEGATIVE); URINE UROBILINOGEN NEGATIVE E.U./dl (0.2-1.0)
[2016-07-26] MEDS: chlordiazePOXIDE HCL 25 MG CAPSULE PO SCH ×4 (05:47→22:06)
--- NOTE | 2016-07-26 09:49 | PN ---
S CIWA - CIWA Score Nausea/Vomitin-No Nausea/No Vomiting Muscle Tremors: 4-Moderate,w/Arms Extend Anxiety: 3 Agitation: 3 Paroxysmal Sweats: 2 Orientation: 0-Oriented Tacttile Disturbances: 3-Moderate Itch/Numb/Burn Auditory Disturbances: 0-None Visual Disturbances: 0-None Headache: 0-None Present CIWA-Ar Total Score: 15 BHS Progress Note (SOAP) Subjective: ANXIETY,SWEATS, TREMORS. Objective: 07/26/16 09:48 Vital Signs Temperature 97.5 F L 07/26/16 06:40 Pulse Rate 78 07/26/16 06:40 Respiratory Rate 18 07/26/16 06:40 Blood Pressure 128/72 07/26/16 06:40 O2 Sat by Pulse Oximetry (%) Laboratory Last Values Urine Color Ltyellow 07/25/16 18:45 Urine Appearance Clear 07/25/16 18:45 Urine pH 8.0 (5.0-8.0) D 07/25/16 18:45 Urine Protein Negative (NEGATIVE) 07/25/16 18:45 Urine Glucose (UA) Negative (NEGATIVE) 07/25/16 18:45 Urine Ketones Negative (NEGATIVE) 07/25/16 18:45 Urine Blood Negative (NEGATIVE) 07/25/16 18:45 Urine Nitrite Negative (NEGATIVE) 07/25/16 18:45 Urine Bilirubin Negative (NEGATIVE) 07/25/16 18:45 Urine Urobilinogen Negative E.U./dl (0.2-1.0) 07/25/16 18:45 Ur Leukocyte Esterase Negative (NEGATIVE) 07/25/16 18:45 Assessment: 07/26/16 09:48 WITHDRAWAL SX Plan: CONTINUE DETOX
[2016-07-26 10:04] LABS: MCH 33.8 pg (25.7-33.7); MCHC 34.8 g/dl (32.0-35.9); MEAN PLT VOLUME 8.3 fl (7.5-11.1); PLATELET COUNT 123 K/MM3 (134-434); RDW 14.3 % (11.9-15.9); WHITE BLOOD COUNT 4.4 K/mm3 (4.0-10.0)
[2016-07-26] MEDS: PRENATAL VITAMINS W/ FOLIC ACID TABLET (FP) PO SCH (10:14)
[2016-07-26] MEDS: RANITIDINE HCL 150 MG TABLET (FP) PO SCH ×2 (10:14→22:06)
[2016-07-26] MEDS: LACTULOSE 20 GM/30 ML UDC (FOR ORAL USE ONLY) PO SCH ×2 (10:15→22:04)
[2016-07-26] MEDS: RIFAXIMIN 550 MG TABLET (UD) PO SCH ×2 (10:15→22:06)
[2016-07-26 10:26] LABS: ALK PHOS 184 U/L (45-117); ANION GAP 10 (8-16); BILIRUBIN,TOTAL 1.8 mg/dL (0.2-1.0); CALCIUM 8.6 mg/dL (8.5-10.1); CO2 27 mmol/L (21-32); COCKROFT - GAULT 198.44; CREATININE 0.8 mg/dL (0.7-1.3); GLUCOSE,RANDOM 142 mg/dL (74-106); SGOT/AST 64 U/L (15-37); SGPT/ALT 44 U/L (12-78); TOT PROT 7.6 g/dl (6.4-8.2)
--- NOTE | 2016-07-26 11:42 | EKG ---
Test Reason : Blood Pressure : / mmHG Vent. Rate : 086 BPM Atrial Rate : 086 BPM P-R Int : 206 ms QRS Dur : 122 ms QT Int : 420 ms P-R-T Axes : 046 -16 058 degrees QTc Int : 502 ms NORMAL SINUS RHYTHM RIGHT BUNDLE BRANCH BLOCK ABNORMAL ECG WHEN COMPARED WITH ECG OF 08-JUN-2016 12:14, NO SIGNIFICANT CHANGE WAS FOUND Confirmed by DEVIN BRENNAN MD ([id number]) on 07/26/2016 11:42:01 AM Referred By: Confirmed By:DEVIN BRENNAN MD
--- NOTE | 2016-07-26 16:11 | CONSULT ---
[facility] Psychiatric Consult - Data Date of interview: 07/26/16 Admission source: [facility] Identifying data: First admission to [facility] for this 50 y/o male seeking detox treatment on for alcohol dependence.Patient is single without children,domiciled,unemployed and supported on [facility] benefits. Substance Abuse History: - Smoking Cessation. Smoking history: Never smoked. Have you smoked in the past 12 months: No. Aproximately how many cigarettes per day: 0. Cigars Per Day: 0. Hx Chewing Tobacco Use: No. Initiated information on smoking cessation: No. - Substance & Tx. History. Hx Alcohol Use: Yes. Hx Substance Use: No. Substance Use Type: Alcohol. Hx Substance Use Treatment: Yes. - Substances Abused. Alcohol. Route: Oral. Frequency : Daily. Amount used: LIQUOR-1 PINT, BEER- 1 SIX SIX PACK. Age of first use: 18. Date of Last Use: 07/25/16. Confirmed by patient. Medical History: History of hepatic encephalopathy,obesity and cirrhosis of the liver. Psychiatric History: Diagnosed with Bipolar Disorder,MDD and PTSD.History of two psychiatric hospitalizations ([facility]).Mr Montilla reports that he stopped getting outpatient psychiatric services about 12 months ago ( issue of coverage as per patient).Used to be on seroquel 300 mg/hs + trazodone 150 mg/hs.Currently off psychotropic medications.Patient reports a history of one suicide attempt via overdose with medications (reason of his first hospitalization). Physical/Sexual Abuse/Trauma History: Patient denies. Additional Comment: Drug Screen is negative. Mental Status Exam - Mental Status Exam Alert and Oriented to: Time, Place, Person Cognitive Function: Good Patient Appearance: Unkempt, Disheveled (obese) Mood: Nervous, Withdrawn, Anxious Affect: Mood Congruent Patient Behavior: Fatigued, Appropriate, Cooperative Speech Pattern: Clear Voice Loudness: Normal Thought Process: Goal Oriented Thought Disorder: Not Present Hallucinations: Denies Suicidal Ideation: Denies Homicidal Ideation: Denies Insight/Judgement: Poor Sleep: Poorly, Difficulty falling asleep (requests trazodone) Appetite: Good Muscle strength/Tone: Normal Gait/Station: Normal Psychiatric Findings - Problem List ([place] 1, 2,3) (1) Alcohol dependence with uncomplicated withdrawal Current Visit: Yes Status: Acute (2) Alcohol-induced mood disorder Current Visit: Yes Status: Acute (3) Bipolar disorder Current Visit: Yes Status: Chronic Comment: History. (4) Cirrhosis of liver Current Visit: Yes Status: Chronic Qualifiers: Hepatic cirrhosis type: alcoholic cirrhosis Ascites presence: without ascites Qualified Code(s): K70.30 - Alcoholic cirrhosis of liver without ascites (5) GERD (gastroesophageal reflux disease) Current Visit: Yes Status: Chronic Qualifiers: Esophagitis presence: without esophagitis Qualified Code(s): K21.9 - Gastro-esophageal reflux disease without esophagitis Comment: zantac TREATED ENDOSCOPE 2017 (6) Insomnia Current Visit: Yes Status: Acute - Initial Treatment Plan Initial Treatment Plan: Psychoeducation.Detoxification.Patient is requesting trazodone 100 mg at bedtime.Made aware of the risk of priapism.He endorses history of good tolerability to the drug.Consents (verbally) to this plan of care.Observation.
[2016-07-26] MEDS: THIAMINE HCL 100 MG TABLET (FP) PO SCH (22:05)
[2016-07-26] MEDS: traZODone HCL 50 MG TABLET (FP) PO SCH (22:06)
[2016-07-27] MEDS: chlordiazePOXIDE HCL 25 MG CAPSULE PO SCH ×3 (05:46→17:24)
[2016-07-27] MEDS: RANITIDINE HCL 150 MG TABLET (FP) PO SCH ×2 (10:07→22:07)
[2016-07-27] MEDS: LACTULOSE 20 GM/30 ML UDC (FOR ORAL USE ONLY) PO SCH ×2 (10:07→22:08)
[2016-07-27] MEDS: RIFAXIMIN 550 MG TABLET (UD) PO SCH ×2 (10:07→22:07)
[2016-07-27] MEDS: PRENATAL VITAMINS W/ FOLIC ACID TABLET (FP) PO SCH (10:07)
--- NOTE | 2016-07-27 10:36 | PN ---
[facility] CIWA - CIWA Score Nausea/Vomitin-No Nausea/No Vomiting Muscle Tremors: 4-Moderate,w/Arms Extend Anxiety: 4-Mod. Anxious/Guarded Agitation: 4-Moderately Restless Paroxysmal Sweats: 1-Minimal Palms Moist Orientation: 0-Oriented Tacttile Disturbances: 3-Moderate Itch/Numb/Burn Auditory Disturbances: 0-None Visual Disturbances: 0-None Headache: 0-None Present CIWA-Ar Total Score: 16 S Progress Note (SOAP) Subjective: ANXIETY,TREMORS,SWEATS. Objective: 07/27/16 10:35 Vital Signs Temperature 96.3 F L 07/27/16 10:17 Pulse Rate 75 07/27/16 10:17 Respiratory Rate 18 07/27/16 10:17 Blood Pressure 131/74 07/27/16 10:17 O2 Sat by Pulse Oximetry (%) Laboratory Last Values WBC 4.4 K/mm3 (4.0-10.0) 07/26/16 06:00 RBC 4.47 M/mm3 (4.00-5.60) 07/26/16 06:00 Hgb 15.1 GM/dL (11.7-16.9) 07/26/16 06:00 Hct 43.4 % (35.4-49) 07/26/16 06:00 MCV 97.0 fl (80-96) H 07/26/16 06:00 MCHC 34.8 g/dl (32.0-35.9) 07/26/16 06:00 RDW 14.3 % (11.9-15.9) 07/26/16 06:00 Plt Count 123 K/MM3 (134-434) L D 07/26/16 06:00 MPV 8.3 fl (7.5-11.1) D 07/26/16 06:00 Sodium 146 mmol/L (136-145) H 07/26/16 06:00 Potassium 3.8 mmol/L (3.5-5.1) 07/26/16 06:00 Chloride 109 mmol/L (98-107) H 07/26/16 06:00 Carbon Dioxide 27 mmol/L (21-32) 07/26/16 06:00 Anion Gap 10 (8-16) 07/26/16 06:00 BUN 6 mg/dL (7-18) L D 07/26/16 06:00 Creatinine 0.8 mg/dL (0.7-1.3) 07/26/16 06:00 Creat Clearance w eGFR > 60 (>60) 07/26/16 06:00 Random Glucose 142 mg/dL (74-106) H D 07/26/16 06:00 Calcium 8.6 mg/dL (8.5-10.1) 07/26/16 06:00 Total Bilirubin 1.8 mg/dL (0.2-1.0) H D 07/26/16 06:00 AST 64 U/L (15-37) H 07/26/16 06:00 ALT 44 U/L (12-78) 07/26/16 06:00 Alkaline Phosphatase 184 U/L (45-117) H D 07/26/16 06:00 Ammonia 160 umol/L (11-32) H 07/26/16 07:00 Total Protein 7.6 g/dl (6.4-8.2) 07/26/16 06:00 Albumin 4.0 g/dl (3.4-5.0) 07/26/16 06:00 Urine Color Ltyellow 07/25/16 18:45 Urine Appearance Clear 07/25/16 18:45 Urine pH 8.0 (5.0-8.0) D 07/25/16 18:45 Ur Specific [place] 1.010 (1.005-1.025) 07/25/16 18:45 Urine Protein Negative (NEGATIVE) 07/25/16 18:45 Urine Glucose (UA) Negative (NEGATIVE) 07/25/16 18:45 Urine Ketones Negative (NEGATIVE) 07/25/16 18:45 Urine Blood Negative (NEGATIVE) 07/25/16 18:45 Urine Nitrite Negative (NEGATIVE) 07/25/16 18:45 Urine Bilirubin Negative (NEGATIVE) 07/25/16 18:45 Urine Urobilinogen Negative E.U./dl (0.2-1.0) 07/25/16 18:45 Ur Leukocyte Esterase Negative (NEGATIVE) 07/25/16 18:45 RPR Titer Nonreactive (NONREACTIVE) 07/26/16 06:00 Assessment: 07/27/16 10:35 WITHDRAWAL SX Plan: CONTINUE DETOX
[2016-07-27] MEDS: traZODone HCL 50 MG TABLET (FP) PO SCH (22:07)
[2016-07-27] MEDS: THIAMINE HCL 100 MG TABLET (FP) PO SCH (22:07)
[2016-07-27] MEDS: chlordiazePOXIDE 5 MG CAPSULE PO SCH (22:07)
[2016-07-28] MEDS: chlordiazePOXIDE 5 MG CAPSULE PO SCH ×2 (06:01→10:33)
[2016-07-28 10:28] VITALS: BP 121/75; PULSE 77; TEMP 96.7
[2016-07-28] MEDS: RANITIDINE HCL 150 MG TABLET (FP) PO SCH (10:32)
[2016-07-28] MEDS: LACTULOSE 20 GM/30 ML UDC (FOR ORAL USE ONLY) PO SCH (10:32)
[2016-07-28] MEDS: PRENATAL VITAMINS W/ FOLIC ACID TABLET (FP) PO SCH (10:32)
[2016-07-28] MEDS: RIFAXIMIN 550 MG TABLET (UD) PO SCH (10:32)
--- NOTE | 2016-07-28 11:03 | DS ---
[facility] Detox Discharge Summary Admission Date: 07/25/16 Discharge Date: 07/28/16 - History Present History: Alcohol Dependence Pertinent Past History: GERD Cirrhosis of the liver - Physical Exam Results Vital Signs: Vital Signs Temperature 96.7 F L 07/28/16 10:28 Pulse Rate 77 07/28/16 10:28 Respiratory Rate 18 07/28/16 10:28 Blood Pressure 121/75 07/28/16 10:28 O2 Sat by Pulse Oximetry (%) Pertinent Admission Physical Exam Findings: Withdrawal sx. Laboratory Last Values WBC 4.4 K/mm3 (4.0-10.0) 07/26/16 06:00 RBC 4.47 M/mm3 (4.00-5.60) 07/26/16 06:00 Hgb 15.1 GM/dL (11.7-16.9) 07/26/16 06:00 Hct 43.4 % (35.4-49) 07/26/16 06:00 MCV 97.0 fl (80-96) H 07/26/16 06:00 MCHC 34.8 g/dl (32.0-35.9) 07/26/16 06:00 RDW 14.3 % (11.9-15.9) 07/26/16 06:00 Plt Count 123 K/MM3 (134-434) L D 07/26/16 06:00 MPV 8.3 fl (7.5-11.1) D 07/26/16 06:00 Sodium 146 mmol/L (136-145) H 07/26/16 06:00 Potassium 3.8 mmol/L (3.5-5.1) 07/26/16 06:00 Chloride 109 mmol/L (98-107) H 07/26/16 06:00 Carbon Dioxide 27 mmol/L (21-32) 07/26/16 06:00 Anion Gap 10 (8-16) 07/26/16 06:00 BUN 6 mg/dL (7-18) L D 07/26/16 06:00 Creatinine 0.8 mg/dL (0.7-1.3) 07/26/16 06:00 Creat Clearance w eGFR > 60 (>60) 07/26/16 06:00 Random Glucose 142 mg/dL (74-106) H D 07/26/16 06:00 Calcium 8.6 mg/dL (8.5-10.1) 07/26/16 06:00 Total Bilirubin 1.8 mg/dL (0.2-1.0) H D 07/26/16 06:00 AST 64 U/L (15-37) H 07/26/16 06:00 ALT 44 U/L (12-78) 07/26/16 06:00 Alkaline Phosphatase 184 U/L (45-117) H D 07/26/16 06:00 Ammonia 160 umol/L (11-32) H 07/26/16 07:00 Total Protein 7.6 g/dl (6.4-8.2) 07/26/16 06:00 Albumin 4.0 g/dl (3.4-5.0) 07/26/16 06:00 Urine Color Ltyellow 07/25/16 18:45 Urine Appearance Clear 07/25/16 18:45 Urine pH 8.0 (5.0-8.0) D 07/25/16 18:45 Ur Specific [place] 1.010 (1.005-1.025) 07/25/16 18:45 Urine Protein Negative (NEGATIVE) 07/25/16 18:45 Urine Glucose (UA) Negative (NEGATIVE) 07/25/16 18:45 Urine Ketones Negative (NEGATIVE) 07/25/16 18:45 Urine Blood Negative (NEGATIVE) 07/25/16 18:45 Urine Nitrite Negative (NEGATIVE) 07/25/16 18:45 Urine Bilirubin Negative (NEGATIVE) 07/25/16 18:45 Urine Urobilinogen Negative E.U./dl (0.2-1.0) 07/25/16 18:45 Ur Leukocyte Esterase Negative (NEGATIVE) 07/25/16 18:45 RPR Titer Nonreactive (NONREACTIVE) 07/26/16 06:00 labs noted - Treatment Patient has Accepted a Rehab Referral to: [facility] - Medication Discharge Medications: Ambulatory Orders Lactulose (Oral Use) [Cephulac -] 20 gm PO TID #1 udc 03/24/16 Pantoprazole Sodium [Protonix -] 40 mg PO DAILY 07/25/16 Rifaximin [Xifaxan] 550 mg PO BID 07/25/16 Trazodone HCl [Desyrel -] 100 mg PO HS 07/25/16 - Diagnosis (1) Alcohol dependence with uncomplicated withdrawal Current Visit: Yes Status: Acute (2) Alcohol-induced mood disorder Current Visit: Yes Status: Acute (3) Insomnia Current Visit: Yes Status: Acute (4) Cirrhosis of liver Current Visit: Yes Status: Chronic Qualifiers: Hepatic cirrhosis type: alcoholic cirrhosis Ascites presence: without ascites Qualified Code(s): K70.30 - Alcoholic cirrhosis of liver without ascites (5) GERD (gastroesophageal reflux disease) Current Visit: Yes Status: Chronic Qualifiers: Esophagitis presence: without esophagitis Qualified Code(s): K21.9 - Gastro-esophageal reflux disease without esophagitis (6) Bipolar disorder Current Visit: Yes Status: Chronic - AMA Did Patient Leave Against Medical Advice: Yes
[2016-07-28] MEDS ORDERED: chlordiazePOXIDE HCL 10 MG CAPSULE PO SCH (23:00)
== END 2016-07-28 09:41 | disposition left against medical advice (07) | DRG 770 ==
LOC: YASAS 11:41 → Y3N 17:39
PROVIDERS: ADMIT Internal Medicine; ATTEND Internal Medicine
PROC: HZ2ZZZZ Detoxification Services for Substance Abuse Treatment (ICD-10-PCS; principal; 2016-07-25)
DX: F10.230 Alcohol dependence with withdrawal, uncomplicated (principal); F10.24 Alcohol dependence with alcohol-induced mood disorder; F31.81 Bipolar II disorder; K21.9 Gastro-esophageal reflux disease without esophagitis; K70.30 Alcoholic cirrhosis of liver without ascites; G47.00 Insomnia, unspecified; E66.9 Obesity, unspecified; Z68.34 Body mass index [BMI] 34.0-34.9, adult; R00.0 Tachycardia, unspecified; Z91.5 Personal history of self-harm; L22 Diaper dermatitis
CPT/HCPCS: 36415; 80053; 81003; 82140; 85027; 86593; 93005; 93010

== ENCOUNTER 2018-03-12 00:22 | Emergency (ER) | payer OTHER | END 2018-03-12 03:44 | disposition left against medical advice (07) | LOC: JER 00:22 ==

== ENCOUNTER 2018-03-12 11:45 | Inpatient (IN) | payer OTHER ==
[2018-03-12 12:42] VITALS: BMI 31.8
--- NOTE | 2018-03-12 13:58 | HP ---
CIWA Score Nausea/Vomitin-No Nausea/No Vomiting Muscle Tremors: 4-Moderate,w/Arms Extend Anxiety: 4-Mod. Anxious/Guarded Agitation: 4-Moderately Restless Paroxysmal Sweats: 3 Orientation: 0-Oriented Tacttile Disturbances: 0-None Auditory Disturbances: 0-None Visual Disturbances: 0-None Headache: 0-None Present CIWA-Ar Total Score: 15 - Admission Criteria [facility] Guidelines: Admission for Medically Managed Detox: Requires at least one of the followin. CIWA greater than 12 2. Seizures within the past 24 hours 3. Delirium tremens within the past 24 hours 4. Hallucinations within the past 24 hours 5. Acute intervention needed for co occurring medical disorder 6. Acute intervention needed for co occurring psychiatric disorder 7. Severe withdrawal that cannot be handled at a lower level of care (continued vomiting, continued diarrhea, abnormal vital signs) requiring intravenous medication and/or fluids 8. Admission ROS S - HPI Chief Complaint: I need to get my life back and stop drinking. I have lots of family support and I know I need this. Allergies/Adverse Reactions: Allergies Allergy/AdvReac Type Severity Reaction Status Date / Time shellfish derived Allergy Severe Swelling Verified 03/12/18 13:40 No Known Drug Allergies Allergy Verified 03/12/18 13:40 History of Present Illness: pt is a 52yr old male with a long history of alcohol dependence seeking detox for treatment. Pt states he was sober for 8months and recently relapsed. Pt has an AA sponsor and has open communication with him. Exam Limitations: No Limitations - Ebola screening Have you traveled outside of the country in the last 21 days: No Have you had contact with anyone from an Ebola affected area: No Have you been sick,other than usual withdrawal symptoms: No Do you have a fever: No - Review of Systems Constitutional: Chills, Diaphoresis, Night Sweats, Changes in sleep EENT: reports: No Symptoms Reported Respiratory: reports: No Symptoms reported Cardiac: reports: Syncope GI: reports: Constipated, Poor Appetite, Poor Fluid Intake, Indigestion : reports: No Symptoms Reported Musculoskeletal: reports: Back Pain Integumentary: reports: Flushing, Sweating, Other (abrasion to right knee and bridge of nose yesterday.) Neuro: reports: Tingling, Tremors Endocrine: reports: Excessive Sweating, Flushing, Intolerance to Cold, Intolerance to Heat Hematology: reports: No Symptoms Reported Psychiatric: reports: Judgement Intact, Mood/Affect Appropiate, Orientated x3, Agitated, Anxious Other Systems: Reviewed and Negative Patient History - Patient Medical History Hx Anemia: No Hx Asthma: No Hx Chronic Obstructive Pulmonary Disease (COPD): No Hx Cancer: No Hx Cardiac Disorders: No Hx Congestive Heart Failure: No Hx Hypertension: No Hx Hypercholesterolemia: No Hx Pacemaker: No HX Cerebrovascular Accident: No Hx Seizures: No Hx Dementia: No Hx Diabetes: No Hx Gastrointestinal Disorders: No Hx Liver Disease: Yes (cirrohosis of the liver) Hx Genitourinary Disorders: No Hx Sexually Transmitted Disorders: No Hx Renal Disease (ESRD): No Hx Thyroid Disease: No Hx Human Immunodeficiency Virus (HIV): No Hx Hepatitis C: No Hx Depression: Yes Hx Suicide Attempt: Yes (2013 over dose) Hx Bipolar Disorder: Yes Hx Schizophrenia: No - Patient Surgical History Past Surgical History: No Hx Neurologic Surgery: No Hx Cataract Extraction: No Hx Cardiac Surgery: No Hx Lung Surgery: No Hx Breast Surgery: No Hx Breast Biopsy: No Hx Abdominal Surgery: No Hx Appendectomy: No Hx Cholecystectomy: No Hx Genitourinary Surgery: No Hx Section: No Hx Orthopedic Surgery: No Anesthesia Reaction: No - PPD History Previous Implant?: Yes Documented Results: Negative w/o proof PPD to be Administered?: Yes - Reproductive History Patient is a Female of Child Bearing Age (11 -55 yrs old): No - Smoking Cessation Smoking history: Never smoked Have you smoked in the past 12 months: No Aproximately how many cigarettes per day: 0 Cigars Per Day: 0 Hx Chewing Tobacco Use: No Initiated information on smoking cessation: No - Substance & Tx. History Hx Alcohol Use: Yes Hx Substance Use: No Substance Use Type: Alcohol Hx Substance Use Treatment: Yes - Substances Abused Alcohol Route: Oral Frequency: Daily Amount used: 1liter and up vodka Age of first use: 15 Date of Last Use: 03/12/18 Family Disease History - Family Disease History Family Disease History: Diabetes: Mother, Other: Father (no contact) Admission Physical Exam BHS - Vital Signs Vital Signs: Vital Signs - 24 hr 03/12/18 12:41 Temperature 96.7 F L Pulse Rate 120 H Respiratory 20 Rate Blood Pressure 162/91 - Physical General Appearance: Yes: Appropriately Dressed, Obese, Irritable, Sweating, Anxious HEENTM: Yes: Hearing grossly Normal, Nasal Congestion, Rhinorrhea Respiratory: Yes: Lungs Clear, Normal Breath Sounds, No Respiratory Distress Neck: Yes: No masses,lesions,Nodules Breast: Yes: No masses Cardiology: Yes: Regular Rhythm, Regular Rate, Tachycardia Abdominal: Yes: Normal Bowel Sounds, Non Tender, Soft Genitourinary: Yes: Within Normal Limits Back: Yes: Normal Inspection Musculoskeletal: Yes: Back pain Extremities: Yes: Normal Capillary Refill, Normal Inspection, Non-Tender, Tremors Neurological: Yes: Fully Oriented, Alert, Normal Response Integumentary: Yes: Normal Color, Diaphoresis Lymphatic: Yes: Within Normal Limits - Diagnostic (1) Alcohol dependence with uncomplicated withdrawal Current Visit: Yes Status: Acute (2) Lumbar paraspinal muscle spasm Current Visit: No Status: Acute Comment: flexeril (3) Cirrhosis of liver Current Visit: Yes Status: Chronic Qualifiers: Hepatic cirrhosis type: alcoholic cirrhosis Ascites presence: without ascites Qualified Code(s): K70.30 - Alcoholic cirrhosis of liver without ascites (4) GERD (gastroesophageal reflux disease) Current Visit: Yes Status: Chronic Qualifiers: Esophagitis presence: without esophagitis Qualified Code(s): K21.9 - Gastro -esophageal reflux disease without esophagitis Comment: zantac TREATED ENDOSCOPE 2016 (5) Bipolar II disorder Current Visit: Yes Status: Chronic Cleared for Admission [facility] - Detox or Rehab [facility] Level of Care: Medically Managed (pt will be placed on an ativan regimen d/ t liver cirrohosis) [facility] Breath Alcohol Content Breath Alcohol Content: 0.235 Urine Drug Screen - Results Drug Screen Negative: Yes
[2018-03-12] MEDS ORDERED: MAGNESIUM HYDROX 2400MG/30ML ORAL SUSPENSION 30 ML CUP PO PRN (14:10)
[2018-03-12] MEDS ORDERED: P-EPHED 60MG/TRIPROLIDI 2.5MG TABLET PO PRN (14:10)
[2018-03-12] MEDS ORDERED: MAG HYDROX/AL HYDROX/SIMETH 30 ML UNIT-DOSE CUP PO PRN (14:10)
[2018-03-12] MEDS ORDERED: LOPERAMIDE HCL 2 MG CAPSULE PO PRN (14:10)
[2018-03-12] MEDS ORDERED: IBUPROFEN 400 MG TABLET (FP) PO PRN (14:10)
[2018-03-12] MEDS ORDERED: guaiFENesin/D-METHORPHAN HB 10 ML UNIT-DOSE CUPS PO PRN (14:10)
[2018-03-12] MEDS ORDERED: MAGNESIUM CITRATE 300 ML BOTTLE PO PRN (14:10)
[2018-03-12] MEDS ORDERED: hydrOXYzine PAMOATE 50 MG CAPSULE (FP) PO PRN (14:10)
[2018-03-12] MEDS ORDERED: MENTHOL/PHENOL 1 EACH UD MM PRN (14:10)
[2018-03-12] MEDS ORDERED: ACETAMINOPHEN 325 MG TABLET (FP) PO PRN (14:10)
[2018-03-12] MEDS ORDERED: LORazepam 1 MG TABLET PO PRN (14:38)
[2018-03-12] MEDS ORDERED: LORazepam 1 MG TABLET PO ONE (15:30)
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
[2018-03-12] MEDS ORDERED: MELATONIN 5 MG TABLETS PO PRN (22:00)
[2018-03-12] MEDS: traZODone HCL 100 MG TABLET (FP) PO SCH (22:11)
[2018-03-12] MEDS: THIAMINE HCL 100 MG TABLET (FP) PO SCH (22:11)
[2018-03-12] MEDS: RIFAXIMIN 550 MG TABLET (UD) PO SCH (22:12)
[2018-03-12] MEDS: LACTULOSE 20 GM/30 ML UDC (FOR ORAL USE ONLY) PO SCH (22:12)
[2018-03-13] MEDS: LORazepam 2 MG TABLET PO SCH ×4 (05:18→22:18)
[2018-03-13] MEDS: LACTULOSE 20 GM/30 ML UDC (FOR ORAL USE ONLY) PO SCH ×3 (05:19→22:19)
--- NOTE | 2018-03-13 09:24 | PN ---
[facility] CIWA - CIWA Score Nausea/Vomitin-Mild Nausea/No Vomiting Muscle Tremors: 3 Anxiety: 3 Agitation: 3 Paroxysmal Sweats: 1-Minimal Palms Moist Orientation: 1-Uncertain about Date Tacttile Disturbances: 0-None Auditory Disturbances: 0-None Visual Disturbances: 0-None Headache: 2-Mild CIWA-Ar Total Score: 14 S Progress Note (SOAP) Subjective: fell on 03/11/18 treated at [facility] er negative ct nose bridge healed 5 mm horizontal superficial skin abrasion denies headache denies dizziness tremor sweating anxiety Objective: 03/13/18 11:13 Vital Signs Temperature 97.1 F L 03/13/18 09:07 Pulse Rate 79 03/13/18 09:07 Respiratory Rate 18 03/13/18 09:07 Blood Pressure 116/67 03/13/18 09:07 O2 Sat by Pulse Oximetry (%) Laboratory Last Values WBC 6.3 K/mm3 (4.0-10.0) 03/13/18 06:00 RBC 4.70 M/mm3 (4.00-5.60) 03/13/18 06:00 Hgb 16.1 GM/dL (11.7-16.9) 03/13/18 06:00 Hct 46.1 % (35.4-49) 03/13/18 06:00 MCV 98.2 fl (80-96) H 03/13/18 06:00 MCH 34.2 pg (25.7-33.7) H 03/13/18 06:00 MCHC 34.8 g/dl (32.0-35.9) 03/13/18 06:00 RDW 13.5 % (11.9-15.9) 03/13/18 06:00 Plt Count 111 K/MM3 (134-434) L 03/13/18 06:00 MPV 8.2 fl (7.5-11.1) 03/13/18 06:00 Sodium 143 mmol/L (136-145) 03/13/18 06:00 Potassium 3.3 mmol/L (3.5-5.1) L 03/13/18 06:00 Chloride 107 mmol/L (98-107) 03/13/18 06:00 Carbon Dioxide 24 mmol/L (21-32) 03/13/18 06:00 Anion Gap 13 MMOL/L (8-16) 03/13/18 06:00 BUN 7 mg/dL (7-18) 03/13/18 06:00 Creatinine 0.7 mg/dL (0.55-1.3) 03/13/18 06:00 Creat Clearance w eGFR > 60 (>60) 03/13/18 06:00 Random Glucose 122 mg/dL (74-106) H 03/13/18 06:00 Calcium 8.8 mg/dL (8.5-10.1) 03/13/18 06:00 Total Bilirubin 2.1 mg/dL (0.2-1) H 03/13/18 06:00 AST 93 U/L (15-37) H 03/13/18 06:00 ALT 48 U/L (13-61) 03/13/18 06:00 Alkaline Phosphatase 172 U/L (45-117) H 03/13/18 06:00 Ammonia 84.02 umol/L (11-32) H 03/12/18 14:50 Total Protein 7.4 g/dl (6.4-8.2) 03/13/18 06:00 Albumin 4.0 g/dl (3.4-5.0) 03/13/18 06:00 lab noted low K+ Assessment: 03/13/18 11:16 withdrawal sx repeat K+ Plan: continue detox K+ supplement repeat K+
[2018-03-13] MEDS: ARIPiprazole 10 MG TABLET PO SCH (10:27)
[2018-03-13] MEDS: NADOLOL 20 MG TABLET (FP) PO SCH (10:27)
[2018-03-13] MEDS: DEXLANSOPRAZOLE 30 MG PO SCH (10:28)
[2018-03-13] MEDS: RIFAXIMIN 550 MG TABLET (UD) PO SCH ×2 (10:28→22:19)
[2018-03-13] MEDS: PRENATAL VITAMINS W/ FOLIC ACID TABLET (FP) PO SCH (10:30)
[2018-03-13 10:37] LABS: HEMATOCRIT 46.1 % (35.4-49); HEMOGLOBIN 16.1 GM/dL (11.7-16.9); MCH 34.2 pg (25.7-33.7); MCHC 34.8 g/dl (32.0-35.9); MEAN CELL VOLUME 98.2 fl (80-96); MEAN PLT VOLUME 8.2 fl (7.5-11.1); PLATELET COUNT 111 K/MM3 (134-434); RDW 13.5 % (11.9-15.9); WHITE BLOOD COUNT 6.3 K/mm3 (4.0-10.0)
[2018-03-13 11:04] LABS: ALK PHOS 172 U/L (45-117); ANION GAP 13 MMOL/L (8-16); BILIRUBIN,TOTAL 2.1 mg/dL (0.2-1); BLOOD UREA NITROGEN 7 mg/dL (7-18); CALCIUM 8.8 mg/dL (8.5-10.1); CHLORIDE 107 mmol/L (98-107); CO2 24 mmol/L (21-32); CREATININE 0.7 mg/dL (0.55-1.3); GLUCOSE,RANDOM 122 mg/dL (74-106); POTASSIUM 3.3 mmol/L (3.5-5.1); SGOT/AST 93 U/L (15-37); SGPT/ALT 48 U/L (13-61); SODIUM 143 mmol/L (136-145); TOT PROT 7.4 g/dl (6.4-8.2)
[2018-03-13] MEDS: POTASSIUM CHLORIDE TABS 20 MEQ TABLET.ER (FP) PO SCH ×2 (11:39→22:18)
[2018-03-13] MEDS ORDERED: FLU VACCINE QUAD 60 MCG/0.5 ML (MDV 18-19) IM ONE (12:00)
--- NOTE | 2018-03-13 12:43 | EKG ---
Test Reason : Blood Pressure : / mmHG Vent. Rate : 101 BPM Atrial Rate : 101 BPM P-R Int : 204 ms QRS Dur : 114 ms QT Int : 372 ms P-R-T Axes : 052 -18 055 degrees QTc Int : 482 ms POOR DATA QUALITY, INTERPRETATION MAY BE ADVERSELY AFFECTED SINUS TACHYCARDIA WITH FUSION COMPLEXES SEPTAL INFARCT , AGE UNDETERMINED ABNORMAL ECG WHEN COMPARED WITH ECG OF 25-JUL-2016 18:39, FUSION COMPLEXES ARE NOW PRESENT RIGHT BUNDLE BRANCH BLOCK IS NO LONGER PRESENT Confirmed by MIKA JUAN, DEVIN ([id number]) on 03/13/2018 12:43:22 PM Referred By: Confirmed By:DEVIN BRENNAN MD
[2018-03-13] MEDS: traZODone HCL 100 MG TABLET (FP) PO SCH (22:18)
[2018-03-13] MEDS: THIAMINE HCL 100 MG TABLET (FP) PO SCH (22:18)
[2018-03-14] MEDS: LORazepam 1 MG TABLET PO SCH ×4 (05:13→22:13)
[2018-03-14] MEDS: LACTULOSE 20 GM/30 ML UDC (FOR ORAL USE ONLY) PO SCH ×3 (06:02→22:12)
--- NOTE | 2018-03-14 10:04 | PN ---
S CIWA - CIWA Score Nausea/Vomitin-Mild Nausea/No Vomiting Muscle Tremors: 3 Anxiety: 1-Mildly Anxious Agitation: 2 Paroxysmal Sweats: 1-Minimal Palms Moist Orientation: 1-Uncertain about Date Tacttile Disturbances: 0-None Auditory Disturbances: 0-None Visual Disturbances: 0-None Headache: 2-Mild CIWA-Ar Total Score: 11 S Progress Note (SOAP) Subjective: tremor sweat trouble sleep throughout the night Objective: 03/14/18 10:03 Vital Signs Temperature 98.1 F 03/14/18 09:07 Pulse Rate 86 03/14/18 09:07 Respiratory Rate 18 03/14/18 09:07 Blood Pressure 130/83 03/14/18 09:07 O2 Sat by Pulse Oximetry (%) Laboratory Last Values WBC 6.3 K/mm3 (4.0-10.0) 03/13/18 06:00 RBC 4.70 M/mm3 (4.00-5.60) 03/13/18 06:00 Hgb 16.1 GM/dL (11.7-16.9) 03/13/18 06:00 Hct 46.1 % (35.4-49) 03/13/18 06:00 MCV 98.2 fl (80-96) H 03/13/18 06:00 MCH 34.2 pg (25.7-33.7) H 03/13/18 06:00 MCHC 34.8 g/dl (32.0-35.9) 03/13/18 06:00 RDW 13.5 % (11.9-15.9) 03/13/18 06:00 Plt Count 111 K/MM3 (134-434) L 03/13/18 06:00 MPV 8.2 fl (7.5-11.1) 03/13/18 06:00 Sodium 143 mmol/L (136-145) 03/13/18 06:00 Potassium 3.3 mmol/L (3.5-5.1) L 03/13/18 06:00 Chloride 107 mmol/L (98-107) 03/13/18 06:00 Carbon Dioxide 24 mmol/L (21-32) 03/13/18 06:00 Anion Gap 13 MMOL/L (8-16) 03/13/18 06:00 BUN 7 mg/dL (7-18) 03/13/18 06:00 Creatinine 0.7 mg/dL (0.55-1.3) 03/13/18 06:00 Creat Clearance w eGFR > 60 (>60) 03/13/18 06:00 Random Glucose 122 mg/dL (74-106) H 03/13/18 06:00 Calcium 8.8 mg/dL (8.5-10.1) 03/13/18 06:00 Total Bilirubin 2.1 mg/dL (0.2-1) H 03/13/18 06:00 AST 93 U/L (15-37) H 03/13/18 06:00 ALT 48 U/L (13-61) 03/13/18 06:00 Alkaline Phosphatase 172 U/L (45-117) H 03/13/18 06:00 Ammonia 84.02 umol/L (11-32) H 03/12/18 14:50 Total Protein 7.4 g/dl (6.4-8.2) 03/13/18 06:00 Albumin 4.0 g/dl (3.4-5.0) 03/13/18 06:00 RPR Titer Nonreactive (NONREACTIVE) 03/13/18 06:00 lab noted Assessment: 03/14/18 10:03 withdrawal sx repeat K+ Plan: continue detox
[2018-03-14] MEDS: PRENATAL VITAMINS W/ FOLIC ACID TABLET (FP) PO SCH (10:28)
[2018-03-14] MEDS: POTASSIUM CHLORIDE TABS 20 MEQ TABLET.ER (FP) PO SCH ×2 (10:28→22:13)
[2018-03-14] MEDS: RIFAXIMIN 550 MG TABLET (UD) PO SCH ×2 (10:28→22:13)
[2018-03-14] MEDS: NADOLOL 20 MG TABLET (FP) PO SCH (10:29)
[2018-03-14] MEDS: ARIPiprazole 10 MG TABLET PO SCH (10:32)
[2018-03-14] MEDS: DEXLANSOPRAZOLE 30 MG PO SCH (10:33)
[2018-03-14] MEDS: THIAMINE HCL 100 MG TABLET (FP) PO SCH (22:13)
[2018-03-14] MEDS: traZODone HCL 100 MG TABLET (FP) PO SCH (22:13)
[2018-03-15] MEDS: LACTULOSE 20 GM/30 ML UDC (FOR ORAL USE ONLY) PO SCH ×3 (05:09→22:05)
[2018-03-15] MEDS: LORazepam 1 MG TABLET PO SCH ×4 (05:09→22:04)
[2018-03-15] MEDS: PRENATAL VITAMINS W/ FOLIC ACID TABLET (FP) PO SCH (10:06)
[2018-03-15] MEDS: RIFAXIMIN 550 MG TABLET (UD) PO SCH ×2 (10:06→22:06)
[2018-03-15] MEDS: POTASSIUM CHLORIDE TABS 20 MEQ TABLET.ER (FP) PO SCH ×2 (10:06→22:04)
[2018-03-15] MEDS: DEXLANSOPRAZOLE 30 MG PO SCH (10:07)
[2018-03-15] MEDS: ARIPiprazole 10 MG TABLET PO SCH (10:07)
[2018-03-15] MEDS: NADOLOL 20 MG TABLET (FP) PO SCH (10:07)
--- NOTE | 2018-03-15 14:30 | PN ---
[facility] Progress Note (SOAP) Subjective: Tremors, Interrupted Sleep. Objective: PATIENT A & O X 2 (UNCERTAIN ABOUT CURRENT DAY / DATE). PATIENT OBSERVED AMBULATING ON UNIT. IN NO ACUTE DISTRESS. 03/15/18 14:26 Vital Signs Temperature 97.1 F L 03/15/18 13:40 Pulse Rate 74 03/15/18 13:40 Respiratory Rate 17 03/15/18 13:40 Blood Pressure 109/68 03/15/18 13:40 O2 Sat by Pulse Oximetry (%) Laboratory Tests 03/12/18 03/13/18 03/13/18 14:50 06:00 06:00 WBC 6.3 RBC 4.70 Hgb 16.1 Hct 46.1 MCV 98.2 H MCH 34.2 H MCHC 34.8 RDW 13.5 Plt Count 111 L MPV 8.2 Sodium 143 Potassium 3.3 L Chloride 107 Carbon Dioxide 24 Anion Gap 13 BUN 7 Creatinine 0.7 Creat Clearance w eGFR > 60 Random Glucose 122 H Calcium 8.8 Total Bilirubin 2.1 H AST 93 H ALT 48 Alkaline Phosphatase 172 H Ammonia 84.02 H Total Protein 7.4 Albumin 4.0 RPR Titer 03/13/18 03/15/18 06:00 07:00 WBC RBC Hgb Hct MCV MCH MCHC RDW Plt Count MPV Sodium Potassium 3.4 L Chloride Carbon Dioxide Anion Gap BUN Creatinine Creat Clearance w eGFR Random Glucose Calcium Total Bilirubin AST ALT Alkaline Phosphatase Ammonia Total Protein Albumin RPR Titer Nonreactive LABS NOTED. RESULT OF REPEAT POTASSIUM LEVEL NOTED. PATIENT REPORTS HISTORY OF HYPERAMMONEMIA, FOR WHICH HE TAKES LACTULOSE. 03/15/18 14:28 Assessment: 03/15/18 14:26 WITHDRAWAL SYMPTOMS. HYPOKALEMIA. HYPERAMMONEMIA. 03/15/18 14:28 Plan: CONTINUE DETOX. INCREASE DAILY PO FLUID INTAKE. PATIENT SCHEDULED FOR D/C TOMORROW.
[2018-03-15] MEDS: traZODone HCL 100 MG TABLET (FP) PO SCH (22:04)
[2018-03-15] MEDS: THIAMINE HCL 100 MG TABLET (FP) PO SCH (22:04)
[2018-03-16] MEDS: LACTULOSE 20 GM/30 ML UDC (FOR ORAL USE ONLY) PO SCH (05:34)
[2018-03-16] MEDS ORDERED: LORazepam 2 MG TABLET PO ONE (06:00)
[2018-03-16 09:03] VITALS: BP 84/58; PULSE 65; TEMP 96.1
[2018-03-16] MEDS: DEXLANSOPRAZOLE 30 MG PO SCH (11:03)
[2018-03-16] MEDS: POTASSIUM CHLORIDE TABS 20 MEQ TABLET.ER (FP) PO SCH (11:03)
[2018-03-16] MEDS: NADOLOL 20 MG TABLET (FP) PO SCH (11:04)
[2018-03-16] MEDS: RIFAXIMIN 550 MG TABLET (UD) PO SCH (11:04)
[2018-03-16] MEDS: ARIPiprazole 10 MG TABLET PO SCH (11:04)
[2018-03-16] MEDS: PRENATAL VITAMINS W/ FOLIC ACID TABLET (FP) PO SCH (11:06)
--- NOTE | 2018-03-16 19:13 | DS ---
[facility] Detox Discharge Summary Admission Date: 03/12/18 Discharge Date: 03/16/18 - History Present History: Alcohol Dependence Additional Comments: PATIENT RETURNING HOME FOR TIME BEING AND REPORTS THAT HE WILL ATTEND LOCAL AA MEETINGS NEAR HIS HOME. PATIENT REPORTS THAT HE WILL ALSO LIKELY APPLY ON HIS OWN FOR ADMISSION FOR REHAB AT [facility] ([place], [place]) IN THE NEAR FUTURE. PATIENT DECLINED OFFER OF MEDICATION PRESCRIPTION FOR HOME MEDICATION AT TIME OF DISCHARGE FROM DETOX, NOTING THAT HE CURRENTLY HAS ADEQUATE SUPPLIES OF ALL PRESCRIBED HOME MEDICATIONS AT HOME. PATIENT ADVISED TO FOLLOW-UP WITH REED FIXER DR. Dwight BRADFORD ([facility]) FOR GENERAL MEDICAL EVALUATION AND FOR HISTORY OF CIRRHOSIS OF LIVER WHEN POSSIBLE AFTER DISCHARGE FROM DETOX UNIT. PATIENT VERBALIZED UNDERSTANDING OF RECOMMENDATION. PATIENT WAS DISCHARGED FROM DETOX UNIT IN STABLE MEDICAL CONDITION. Pertinent Past History: History of Cirrhosis of Liver, Bipolar II Disorder, History of Hyperammonemia, History of Spasm of Lumbar Paraspinal Musculature, History of G.E.R..D., History of P.T.S.D., History of Depression, History of Anxiety Disorder. - Physical Exam Results Vital Signs: Vital Signs Temperature 96.1 F L 03/16/18 09:03 Pulse Rate 65 03/16/18 09:03 Respiratory Rate 18 03/16/18 09:03 Blood Pressure 84/58 L 03/16/18 09:03 O2 Sat by Pulse Oximetry (%) Pertinent Admission Physical Exam Findings: WITHDRAWAL SYMPTOMS. Laboratory Tests 03/12/18 03/13/18 03/13/18 14:50 06:00 06:00 WBC 6.3 RBC 4.70 Hgb 16.1 Hct 46.1 MCV 98.2 H MCH 34.2 H MCHC 34.8 RDW 13.5 Plt Count 111 L MPV 8.2 Sodium 143 Potassium 3.3 L Chloride 107 Carbon Dioxide 24 Anion Gap 13 BUN 7 Creatinine 0.7 Creat Clearance w eGFR > 60 Random Glucose 122 H Calcium 8.8 Total Bilirubin 2.1 H AST 93 H ALT 48 Alkaline Phosphatase 172 H Ammonia 84.02 H Total Protein 7.4 Albumin 4.0 RPR Titer 03/13/18 03/15/18 06:00 07:00 WBC RBC Hgb Hct MCV MCH MCHC RDW Plt Count MPV Sodium Potassium 3.4 L Chloride Carbon Dioxide Anion Gap BUN Creatinine Creat Clearance w eGFR Random Glucose Calcium Total Bilirubin AST ALT Alkaline Phosphatase Ammonia Total Protein Albumin RPR Titer Nonreactive LABS NOTED. - Treatment Hospital Course: Detox Protocol Followed, Detoxed Safely, Responded well, Discharged Condition Good Patient has Accepted a Rehab Referral to: PT WILL APPLY FOR ADMISSION TO [facility]. - Medication Discharge Medications: Ambulatory Orders Rifaximin [Xifaxan] 550 mg PO BID 07/25/16 traZODone HCL [Desyrel -] 200 mg PO HS 07/25/16 Aripiprazole [Abilify -] 10 mg PO DAILY 03/12/18 Bupropion HCl [Bupropion Xl] 150 mg PO DAILY 03/12/18 Dexlansoprazole [Dexilant] 30 mg PO DAILY 03/12/18 Lactulose (Oral Use) [Cephulac -] 15 ml PO TID 03/12/18 Nadolol [Corgard -] 20 mg PO DAILY 03/12/18 - Diagnosis (1) Alcohol dependence with uncomplicated withdrawal Status: Acute (2) Lumbar paraspinal muscle spasm Status: Acute (3) Bipolar II disorder Status: Chronic (4) Cirrhosis of liver Status: Chronic Qualifiers: Hepatic cirrhosis type: alcoholic cirrhosis Ascites presence: without ascites Qualified Code(s): K70.30 - Alcoholic cirrhosis of liver without ascites (5) GERD (gastroesophageal reflux disease) Status: Chronic Qualifiers: Esophagitis presence: without esophagitis Qualified Code(s): K21.9 - Gastro -esophageal reflux disease without esophagitis (6) PTSD (post-traumatic stress disorder) Status: Chronic (7) Anxiety disorder Status: Chronic Qualifiers: Anxiety disorder type: unspecified anxiety disorder Qualified Code(s): F41.9 - Anxiety disorder, unspecified - AMA Did Patient Leave Against Medical Advice: No
== END 2018-03-16 11:07 | disposition home or self-care (01) | DRG 897 ==
LOC: YASAS 11:45 → Y3N 14:29
PROVIDERS: ADMIT Neuromusculoskeletal Medicine & OMM; ATTEND Neuromusculoskeletal Medicine & OMM
PROC: HZ2ZZZZ Detoxification Services for Substance Abuse Treatment (ICD-10-PCS; principal; 2018-03-12)
DX: F10.230 Alcohol dependence with withdrawal, uncomplicated (principal); F31.81 Bipolar II disorder; E72.20 Disorder of urea cycle metabolism, unspecified; F43.10 Post-traumatic stress disorder, unspecified; F41.9 Anxiety disorder, unspecified; K70.30 Alcoholic cirrhosis of liver without ascites; K21.9 Gastro-esophageal reflux disease without esophagitis; E87.6 Hypokalemia; M62.830 Muscle spasm of back; Z91.5 Personal history of self-harm; Z91.013 Allergy to seafood
CPT/HCPCS: 36415; 70450-TC; 70486-TC; 72125-TC; 80053; 82140; 84132; 85027; 86593; 90471; 90688; 93005; 93010; 99282-25; G0008